=== PATIENT | male | born 1935 ===

== ENCOUNTER → 2017-12-18 12:33 | Outpatient (CLI) | payer OTHER ==
[2017-12-18 16:25] LABS: EOSINOPHILS 2.9 % (0-7); HEMOGLOBIN 15.4 g/dL (13.5-17.5); IMMATURE GRANULOCYTES 0.3 % (0-5); LYMPHOCYTES 43.8 % (15-50); MCHC 32.8 g/dL (31.0-37.0); MCV 85.5 fL (80.0-100.0); MEAN PLATELET VOLUME 12.4 fL (7.4-10.4); MONOCYTES 8.9 % (2-11); NEUTROPHILS 43.1 % (40-80); PLATELET COUNT 170 10x3/uL (130-400); RDW 13.8 % (11.5-14.5); WBC 3.8 10x3/uL (4.8-10.8)
[2017-12-18 17:30] LABS: ERYTHROCYTE SEDIMENTATION RATE 1 mm/hr (0-20)
== END | disposition home or self-care (01) ==
LOC: D.LABREF 12:33
PROVIDERS: Orthopaedic Surgery
DX: M25.561 Pain in right knee (principal)